=== PATIENT | male | born 1955 | race Caucasian/White ===

== ENCOUNTER 2016-11-27 19:48 | Emergency (ER) | payer OTHER ==
--- NOTE | 2016-11-27 19:52 | ED AMS/SEIZURE/WEAK/DIZZY ---
History of Present Illness General Chief Complaint: Seizure Stated Complaint: BIBA SEIZURE Source: patient, old records, EMS Exam Limitations: clinical condition Vital Signs & Intake/Output Vital Signs & Intake/Output Vital Signs Date Time Temp Pulse Resp B/P Pulse O2 O2 Flow FiO2 Ox Delivery Rate 11/27 2257 97.0 69 18 131/60 96 Room Air Room Air 11/27 2211 73 18 113/88 95 Room Air 11/279 66 20 155/91 98 Nasal 2.0L Cannula 11/27 2037 96.7 63 16 110/70 99 Room Air ED Intake and Output 11/28 0000 11/27 1200 Intake Total 1000 Output Total Balance 1000 Intake, IV 1000 Allergies Coded Allergies: No Known Allergies (11/27/16) Reconcile Medications Levetiracetam 500 MG TABLET 1 TAB PO BID UNKNOWN (Reported) Triage Nurses Notes Reviewed? yes Onset: Abrupt Duration: minute(s): Timing: single episode today Injury Environment: home Severity: moderate Modifying Factors: Improves With: medication. Associated Symptoms: confusion, kicking HPI: 61 yo gentleman h/o seizure disorder, presents via ambulance after having had seizure type activity. The medics note that had been smoking marijuana prior to their arrival. He had a brief 2 minute seizure which self resolved. He then was confused afterwards, kicking and thrashing about, minimally responsive. The medics gave him a benzodiazepine IM. His symptoms abated. He arrives in the ED, confused with some kicking, no seizure activity. No witnessed trauma Past History Medical History Any Pertinent Medical History? see below for history Neurological: seizure Musculoskeletal: TORN ACL Surgical History Surgical History: non-contributory Psychosocial History What is your primary language Chinese Family History Hx Contributory? No Review of Systems Review of Systems Constitutional: Reports: no symptoms. EENTM: Reports: no symptoms. Respiratory: Reports: no symptoms. Cardiovascular: Reports: no symptoms. GI: Reports: no symptoms. Genitourinary: Reports: no symptoms. Musculoskeletal: Reports: no symptoms. Skin: Reports: no symptoms. Neurological/Psychological: Reports: no symptoms. Hematologic/Endocrine: Reports: no symptoms. Immunologic/Allergic: Reports: no symptoms. All Other Systems: Reviewed and Negative Physical Exam Physical Exam General Appearance: well developed/nourished, mild distress, moderate distress Head: atraumatic, normal appearance Eyes: Bilateral: normal appearance, PERRL, EOMI. Ears, Nose, Throat: normal pharynx, normal ENT inspection Neck: normal inspection, supple, full range of motion Respiratory: normal breath sounds, chest non-tender, no respiratory distress, quiet respiration, lungs clear Cardiovascular: regular rate/rhythm Gastrointestinal: normal bowel sounds, soft, non-tender, no organomegaly Back: normal inspection Extremities: normal range of motion, pelvis stable Neurologic/Psych: confused, responsive, no focal deficit Reflexes: 1+: bicep (R), bicep (L), knee (R), knee (L). Skin: intact, normal color, warm/dry Core Measures ACS in differential dx? No CVA/TIA Diagnosis: No Severe Sepsis Present: No Septic Shock Present: No Progress Differential Diagnosis: anemia, dehydration, electrolyte imbalance, intracranial Hem., intracranial mass/tumor, seizure disorder Plan of Care: Orders Procedure Date/time Status URINE DRUG SCREEN FOR ER ONLY 11/27 1953 Complete URINALYSIS 11/27 1953 Complete TROPONIN LEVEL 11/28 1951 Complete PROLACTIN 11/28 1951 Complete ETHANOL 11/28 1951 Complete COMPREHENSIVE METABOLIC PANEL 11/28 1951 Complete CBC WITHOUT DIFFERENTIAL 11/28 1951 Complete EKG 11/28 1951 Active Laboratory Tests 11/27/16 2250: Urine Opiates Screen < 100.00, Methadone Screen < 40, Barbiturate Screen < 60, Ur Phencyclidine Scrn < 6.00, Amphetamines Screen < 100, U Benzodiazepines Scrn > 800 H, Urine Cocaine Screen < 50, Urine Cannabis Screen > 80.00 H, Urine Color YEL, Urine Clarity CLEAR, Urine pH 6.0, Ur Specific [place] >= 1.030, Urine Protein 30 H, Urine Ketones TRACE H, Urine Nitrite NEG, Urine Bilirubin NEG, Urine Urobilinogen 0.2, Ur Leukocyte Esterase NEG, Ur Microscopic SEDIMENT EXAMINED, Urine RBC 3-5, Urine WBC 3-5 H, Ur Epithelial Cells RARE, Urine Bacteria MOD H, Hyaline Casts RARE H, Urine Mucus MOD H, Urine Hemoglobin MOD H, Urine Glucose 100 H 11/27/162126: Anion Gap 11, Estimated GFR > 60, BUN/Creatinine Ratio 14.3, Glucose 102 H, Calcium 9.2, Total Bilirubin 0.5, AST 32, ALT 33, Alkaline Phosphatase 64, Troponin I 0.04, Total Protein 6.7, Albumin 4.1, Globulin 2.6, Albumin/Globulin Ratio 1.6, Prolactin 5.4, CBC w Diff MAN DIFF ORDERED, RBC 4.36 L, MCV 91.5, MCH 30.0, RDW 12.9, MPV 9.0, Gran % 94.3 H, Lymphocytes % 2.2 L, Monocytes % 3.3, Eosinophils % 0, Basophils % 0.2, Absolute Granulocytes 19.2 H, Absolute Lymphocytes 0.4 L, Absolute Monocytes 0.7 H, Absolute Eosinophils 0, Absolute Basophils 0, Platelet Estimate ADEQUATE, Normocytic RBCs VERIFIED, Normochromic RBCs VERIFIED, PUBS MCHC 32.8 L, Serum Alcohol < 10.0 Diagnostic Imaging: Viewed by Me: Radiology Read, CT Scan. Discussed w/RAD: Radiology Read, CT Scan. Radiology Impression: head ct... arachnoid cyst CXR Impression: "equivocal peribronchial thickening"... full report below. Initial ED EKG: normal axis, normal intervals, normal p-waves, normal QRS complex, normal sinus rhythm Comments: PATIENT: DARI MORROW PRESENT AGE: 61 PATIENT ACCOUNT NO: [id number] : 56 LOCATION: [facility] ORDERING PHYSICIAN: RACHEL WARNER MD SERVICE DATE: 11/27/16 EXAM TYPE: RAD - XRY-PORTABLE CHEST XRAY EXAMINATION: XR CHEST PORTABLE CLINICAL INFORMATION: Seizure. Dyspnea. COMPARISON: None. TECHNIQUE: Portable AP view of the chest was obtained. FINDINGS: The lungs are well-expanded. No focal consolidation, pleural effusion, pulmonary edema, or pneumothorax. Equivocal peribronchial thickening. No mediastinal widening. No acute osseous abnormalities. IMPRESSION: Equivocal peribronchial thickening. This could reflect a degree of small airways inflammation. DICTATED BY: LIYA COLE MD DATE/TIME DICTATED:11/27/162104 [employer] CUTTER MACHINE:CAITLIN DATE/TIME TRANSCRIBED:11/27/162104 CONFIDENTIAL, DO NOT COPY WITHOUT APPROPRIATE AUTHORIZATION. <Electronically signed in Other Vendor System> SIGNED BY: LIYA COLE MD 11/27/162113 PATIENT: DARI MORROW PRESENT AGE: 61 PATIENT ACCOUNT NO: [id number] : 56 LOCATION: [facility] ORDERING PHYSICIAN: RACHEL WARNER MD SERVICE DATE: 11/27/16 EXAM TYPE: CAT - CT HEAD WO IV CONTRAST EXAMINATION: CT HEAD WITHOUT CONTRAST CLINICAL INFORMATION: Seizure. Post ictal. COMPARISON: None TECHNIQUE: Contiguous axial imaging was performed from the skull base to vertex without intravenous administration of contrast. DLP: 672 mGy-cm FINDINGS: There is no evidence of acute intracranial hemorrhage or territorial infarction. No abnormal mass effect or midline shift is seen. Fragoso to white matter differentiation is well preserved. Suspect a chronic arachnoid cyst in the left posterior aspect of the posterior fossa, measuring 3.7 x 1.2 cm transaxially. The ventricles are normal in size. There is no abnormal attenuation within the brain parenchyma. The osseous structures and soft tissues are normal. The mastoid air cells and visualized portions of the paranasal sinuses are well aerated. IMPRESSION: No acute intracranial pathology. Suspect a chronic arachnoid cyst within the left aspect of the posterior fossa. DICTATED BY: LIYA COLE MD DATE/TIME DICTATED:11/27/162136 H[employer] CUTTER MACHINE:CAITLIN DATE/TIME TRANSCRIBED:11/27/162136 CONFIDENTIAL, DO NOT COPY WITHOUT APPROPRIATE AUTHORIZATION. <Electronically signed in Other Vendor System> SIGNED BY: LIYA COLE MD 11/27/162143 Departure Departure Disposition: HOME OR SELF CARE Condition: Stable Clinical Impression Primary Impression: Seizure Referrals: CANDICE DELATORRE,MAXIMINO Soto Departure Forms: Customer Survey General Discharge Information Comments 11/28/16, 1am... pt reports feeling better. .He is awake and alert. He has no cough/phlegm/dyspnea. discussed at length with family. He feels comfortable going home... close follow up advised.
[2016-11-27] MEDS ORDERED: LEVETIRACETAM500 M2 PO (20:19)
--- NOTE | 2016-11-27 21:14 | RADIOLOGY REPORT ---
EXAMINATION: XR CHEST PORTABLE CLINICAL INFORMATION: Seizure. Dyspnea. COMPARISON: None. TECHNIQUE: Portable AP view of the chest was obtained. FINDINGS: The lungs are well-expanded. No focal consolidation, pleural effusion, pulmonary edema, or pneumothorax. Equivocal peribronchial thickening. No mediastinal widening. No acute osseous abnormalities. IMPRESSION: Equivocal peribronchial thickening. This could reflect a degree of small airways inflammation.
[2016-11-27 21:40] LABS: ABSOLUTE BASOPHIL COUNT 0 /CUMM (0.0-0.2); ABSOLUTE EOSINOPHIL COUNT 0 /CUMM (0.0-0.7); ABSOLUTE GRANULOCYTE CT 19.2 /CUMM (1.4-6.5); ABSOLUTE LYMPH COUNT 0.4 /CUMM (1.2-3.4); ABSOLUTE MONOCYTE COUNT 0.7 /CUMM (0.10-0.60); BASOPHIL % 0.2 % (0.0-2.0); EOSINOPHIL % 0 % (0-5); GRANULOCYTE % 94.3 % (42.2-75.2); HEMATOCRIT 39.9 % (42-52); MEAN CORPUSCULAR HGB CONC 32.8 G/DL (33.0-37.0); MEAN CORPUSCULAR VOLUME 91.5 FL (80.0-94.0); PLATELET COUNT 248 /CUMM (130-400); RBC DISTRIBUTION WIDTH 12.9 % (11.5-14.5); RED BLOOD CELL CT 4.36 /CUMM (4.70-6.10); WHITE BLOOD CELL COUNT 20.3 /CUMM (4.8-10.8)
--- NOTE | 2016-11-27 21:44 | CT SCAN REPORT ---
EXAMINATION: CT HEAD WITHOUT CONTRAST CLINICAL INFORMATION: Seizure. Post ictal. COMPARISON: None TECHNIQUE: Contiguous axial imaging was performed from the skull base to vertex without intravenous administration of contrast. DLP: 672 mGy-cm FINDINGS: There is no evidence of acute intracranial hemorrhage or territorial infarction. No abnormal mass effect or midline shift is seen. Fragoso to white matter differentiation is well preserved. Suspect a chronic arachnoid cyst in the left posterior aspect of the posterior fossa, measuring 3.7 x 1.2 cm transaxially. The ventricles are normal in size. There is no abnormal attenuation within the brain parenchyma. The osseous structures and soft tissues are normal. The mastoid air cells and visualized portions of the paranasal sinuses are well aerated. IMPRESSION: No acute intracranial pathology. Suspect a chronic arachnoid cyst within the left aspect of the posterior fossa.
[2016-11-27 22:58] VITALS: BP 131/60
== END 2016-11-27 23:55 ==
LOC: ERH 19:48
PROVIDERS: Pediatrics
DX: R56.9 Unspecified convulsions (principal)
CPT/HCPCS: 80307; 81001; 93005; 93010; 96374; 96375; G0480; J1953